=== PATIENT | female | born 1950 | race Caucasian/White ===

== ENCOUNTER 2016-07-29 12:34 | Emergency (ER) | payer OTHER, MEDICAID ==
[~2016-07-29] VITALS: Ht 160 cm; Wt 49.9 kg
[2016-07-29 13:44] LABS: Basophils # (auto) 0 uL; Basophils % (auto) 0.6 % (0.0-2.0); Eosinophils # (auto) 0.1 uL; Eosinophils % (auto) 1.8 % (0.0-7.0); Hematocrit 44.5 % (36.0-46.0); Hemoglobin 14.7 g/dL (12.2-16.2); Lymphocytes # (auto) 1.2 uL; Lymphocytes % (auto) 21.6 % (10.0-50.0); Mean Corpuscular Hemoglobin 28.5 pg (28.0-32.0); Mean Corpuscular Volume 86.6 fL (80.0-100.0); Mean Platelet Volume 8.1 fL (7.4-10.4); Monocytes # (auto) 0.4 uL; Monocytes % (auto) 6.6 % (0.0-12.0); Neutrophils # (auto) 3.8 uL; Neutrophils % (auto) 69.4 % (37.0-80.0); Platelet Count (auto) 272 10^3/uL (140-450); Red Cell Distribution Width 12.5 % (11.6-16.0); White Blood Cell 5.5 10^3/uL (4.4-10.8)
[2016-07-29 13:49] LABS: Salicylate < 1.7 mg/dL (2.8-20.0)
[2016-07-29 13:51] LABS: Albumin 3.9 g/dL (3.4-5.0); Alkaline Phosphatase 116 U/L (45-117); Anion Gap 7 (5-15); Aspartate Aminotransferase 18 U/L (15-37); BUN/Creatinine Ratio 23.2; Bilirubin, Total 1.4 mg/dL (0.2-1.0); Blood Urea Nitrogen 16 mg/dL (7-18); Calcium 9.6 mg/dL (8.5-10.1); Carbon Dioxide 24 mmol/L (21-32); Chloride 111 mmol/L (98-107); GFR African American 111 mL/min; GFR Non-African American 91 mL/min; Glucose 108 mg/dL (74-106); Potassium 4.1 mmol/L (3.5-5.1); Sodium 142 mmol/L (136-145); Total Protein 7.7 g/dL (6.4-8.2)
[2016-07-29 13:56] LABS: Acetaminophen < 2.0 ug/mL (10-30)
[2016-07-29 17:23] VITALS: BP 136/80
== END 2016-07-29 17:38 | disposition home or self-care (01) ==
LOC: ER 12:34
DX: T48.6X1A Poisoning by antiasthmatics, accidental (unintentional), initial encounter (principal); F31.9 Bipolar disorder, unspecified; E07.9 Disorder of thyroid, unspecified; Y93.89 Activity, other specified; Y99.8 Other external cause status; Y92.89 Other specified places as the place of occurrence of the external cause
CPT/HCPCS: 36415; 80053; 80320; 80329; 85025

== ENCOUNTER 2018-10-29 17:05 | Emergency (ER) | payer OTHER, MEDICAID ==
[~2018-10-29] VITALS: Ht 157.5 cm; Wt 61.2 kg
[2018-10-29 18:11] LABS: Basophils # (auto) 0.1 uL; Basophils % (auto) 1.3 % (0.0-2.0); Eosinophils # (auto) 0.2 uL; Eosinophils % (auto) 4.1 % (0.0-7.0); Hematocrit 41.5 % (36.0-46.0); Hemoglobin 13.8 g/dL (12.2-16.2); Lymphocytes # (auto) 1.1 uL; Lymphocytes % (auto) 17.8 % (10.0-50.0); Mean Corpuscular Hemoglobin 28.7 pg (28.0-32.0); Mean Corpuscular Hgb Conc. 33.3 g/dL (32.0-36.0); Mean Corpuscular Volume 86.3 fL (80.0-100.0); Monocytes # (auto) 0.4 uL; Neutrophils # (auto) 4.1 uL; Neutrophils % (auto) 69.8 % (37.0-80.0); Nucleated Red Blood Cells % 0.1 %; Platelet Count (auto) 198 10^3/uL (140-450); Red Blood Cells 4.81 10^6/uL (4.0-5.20); Red Cell Distribution Width 12.9 % (11.8-14.3); White Blood Cell 5.9 10^3/uL (4.4-10.8)
[2018-10-29 18:40] LABS: Alanine Aminotransferase 31 U/L (13-56); Albumin 3.3 g/dL (3.4-5.0); Anion Gap 10 (5-15); Aspartate Aminotransferase 24 U/L (15-37); Blood Urea Nitrogen 21 mg/dL (7-18); Carbon Dioxide 25 mmol/L (21-32); Chloride 110 mmol/L (98-107); GFR African American 88 mL/min; GFR Non-African American 72 mL/min; Glucose 169 mg/dL (74-106); Magnesium 1.9 mg/dL (1.6-2.6); Potassium 3.7 mmol/L (3.5-5.1); Sodium 145 mmol/L (136-145)
[2018-10-29 18:45] LABS: Alkaline Phosphatase 127 U/L (45-117); Bilirubin, Total 0.4 mg/dL (0.2-1.0); Total Protein 6.5 g/dL (6.4-8.2)
[2018-10-29 20:19] LABS: Urine Bacteria FEW /hpf (None Seen); Urine Blood Negative /uL (Negative); Urine Mucus FEW (None Seen); Urine Specific Gravity 1.023 (1.001-1.035); Urine WBC 5 /hpf (0 - 5)
[2018-10-29 20:21] LABS: Alcohol, Urine < 3.0 mg/dL (0-5); Amphetamine Screen, Urine NEGATIVE (NEGATIVE); Barbiturate Scree,Urine NEGATIVE (NEGATIVE); Benzodiazephine Screen, Urine NEGATIVE (NEGATIVE); Cannabinoid Screen, Urine NEGATIVE (NEGATIVE); Cocaine Screen, Urine NEGATIVE (NEGATIVE); Opiate Scree,Urine NEGATIVE (NEGATIVE); Phencyclidine Screen, Urine NEGATIVE (NEGATIVE)
[2018-10-29] MEDS ORDERED: cefTRIAXone 1GM/50ML D5W 50 ML IV ONE (21:15)
[2018-10-29 21:45] LABS: INR 0.95 (0.9-1.15); Partial Thromboplastin Time 23.7 sec (23.64-32.05)
[2018-10-29] MEDS ORDERED: IOHEXOL 350 MG/ML 100ML IJ ONE (22:40)
[2018-10-30 03:00] VITALS: BP 111/63
== END 2018-10-30 04:57 | disposition home or self-care (01) ==
LOC: EDBD 17:05 → ER 17:05
DX: R06.02 Shortness of breath (principal); N39.0 Urinary tract infection, site not specified; R79.89 Other specified abnormal findings of blood chemistry; F17.210 Nicotine dependence, cigarettes, uncomplicated
CPT/HCPCS: 36415; 71045; 71260; 80053; 80307; 81001; 83735; 83880; 84484; 85025; 85379; 85610; 85730; 93005; 94761; 96365; 99284; J0696; Q9967

== ENCOUNTER 2019-01-29 09:15 | Emergency (ER) | payer OTHER, MEDICAID ==
[~2019-01-29] VITALS: Ht 157.5 cm; Wt 62.1 kg
[2019-01-29 09:58] VITALS: BP 140/74
[2019-01-29] MEDS ORDERED: IBUPROFEN 600 MG TAB PO ONE (10:15)
== END 2019-01-29 11:51 | disposition home or self-care (01) ==
LOC: ER 09:21
DX: M25.551 Pain in right hip (principal); M79.604 Pain in right leg; F17.210 Nicotine dependence, cigarettes, uncomplicated; E78.5 Hyperlipidemia, unspecified; W19.XXXA Unspecified fall, initial encounter; Y93.89 Activity, other specified; Y99.8 Other external cause status; Y92.89 Other specified places as the place of occurrence of the external cause
CPT/HCPCS: 73502

== ENCOUNTER 2021-02-17 13:36 | Emergency (ER) | payer OTHER, MEDICAID ==
[~2021-02-17] VITALS: Ht 167.6 cm; Wt 63.5 kg
[2021-02-17 15:34] LABS: Basophils # (auto) 0.1 10 ^3/uL (0-0.2); Basophils % (auto) 0.7 % (0.0-2.0); Eosinophils # (auto) 0.1 10 ^3/uL (0-0.8); Hematocrit 44.3 % (36.0-46.0); Hemoglobin 14.4 g/dL (12.2-16.2); Lymphocytes # (auto) 0.6 10 ^3/uL (0.4-5.4); Lymphocytes % (auto) 4.5 % (10.0-50.0); Mean Corpuscular Hgb Conc. 32.5 g/dL (32.0-36.0); Monocytes # (auto) 1.1 10 ^3/uL (0-1.3); Monocytes % (auto) 8.4 % (0.0-12.0); Neutrophils # (auto) 11.4 10 ^3/uL (1.6-8.6); Neutrophils % (auto) 85.4 % (37.0-80.0); Red Blood Cells 5.15 10^6/uL (4.0-5.20); Red Cell Distribution Width 12.9 % (11.8-14.3); White Blood Cell 13.3 10^3/uL (4.4-10.8)
[2021-02-17 15:49] LABS: Albumin 3.3 g/dL (3.4-5.0); Calcium 9.2 mg/dL (8.5-10.1); Potassium 3.9 mmol/L (3.5-5.1)
[2021-02-17 15:54] LABS: BUN/Creatinine Ratio 19.5; Bilirubin, Total 0.7 mg/dL (0.2-1.0); Total Protein 7.1 g/dL (6.4-8.2)
[2021-02-17] MEDS ORDERED: IPRATROPIUM BROM 0.5 MG/2.5ML INH SOL NEB ONE ×2 (16:15→17:45)
[2021-02-17] MEDS ORDERED: methylPREDNISolone SOD SUCC 125 MG/2 ML VL IV ONE (16:15)
[2021-02-17] MEDS ORDERED: ALBUTEROL SULF 2.5 MG/0.5ML(0.5%) NEB SOLN NEB ONE ×2 (16:15→17:45)
[2021-02-17 18:00] VITALS: BP 120/90
== END 2021-02-17 18:21 | disposition admitted as inpatient to this hospital (09) ==
LOC: EDUNIT# 13:36 → EDBD 13:36 → ER 13:36
DX: J44.1 Chronic obstructive pulmonary disease with (acute) exacerbation (principal); E46 Unspecified protein-calorie malnutrition; E78.5 Hyperlipidemia, unspecified; F17.210 Nicotine dependence, cigarettes, uncomplicated; Z68.22 Body mass index [BMI] 22.0-22.9, adult; Z20.822 Contact with and (suspected) exposure to COVID-19
CPT/HCPCS: 36415; 71045; 80053; 83735; 84484; 85025; 87426; 93005; 94640; 96374; 99285; J2930; J7644

== ENCOUNTER 2022-11-10 10:38 | Emergency (ER) | payer OTHER, MEDICAID ==
[~2022-11-10] VITALS: Ht 157.5 cm; Wt 60.4 kg
[2022-11-10] MEDS ORDERED: ACETAMINOPHEN 325 MG TAB PO ONE (11:00)
[2022-11-10 11:58] VITALS: BP 106/64; PULSE 80; RESP 20; O2SAT 94
[2022-11-10 12:06] VITALS: TEMP 97.6
[2022-11-10 12:36] LABS: Urine Bacteria FEW /hpf (None Seen); Urine Blood TRACE /uL (Negative); Urine Clarity HAZY (Clear); Urine Color Yellow (Yellow); Urine Mucus FEW (None Seen); Urine Protein, UAD Negative (Negative); Urine Specific Gravity 1.026 (1.001-1.035); Urine Urobilinogen Normal (Negative); Urine WBC 4 /hpf (0 - 5); Urine pH 5.5 (5.0-8.0)
[2022-11-10] MEDS ORDERED: CIPR-173 PO (13:03)
[2022-11-10] MEDS ORDERED: ACET-1080 PO (13:03)
== END 2022-11-10 13:15 | disposition home or self-care (01) ==
LOC: ER 10:38
DX: S39.012A Strain of muscle, fascia and tendon of lower back, initial encounter (principal); N30.00 Acute cystitis without hematuria; F41.9 Anxiety disorder, unspecified; J45.909 Unspecified asthma, uncomplicated; F32.9 Major depressive disorder, single episode, unspecified; E78.5 Hyperlipidemia, unspecified; F17.210 Nicotine dependence, cigarettes, uncomplicated; Z88.8 Allergy status to other drugs, medicaments and biological substances; Z79.1 Long term (current) use of non-steroidal anti-inflammatories (NSAID); Z79.899 Other long term (current) drug therapy; X58.XXXA Exposure to other specified factors, initial encounter; Y93.89 Activity, other specified; Y92.89 Other specified places as the place of occurrence of the external cause; Y99.8 Other external cause status
CPT/HCPCS: 72100; 81001

== ENCOUNTER 2024-05-10 11:00 | Emergency (ER) | payer OTHER, MEDICAID ==
[~2024-05-10] VITALS: Ht 157.5 cm; Wt 54.9 kg
[~2024-05-10 11:00] MED LIST: ACET-1080 PO; CIPR-173 PO
[2024-05-10 12:19] VITALS: PULSE 75; RESP 17; TEMP 97.6; O2SAT 98
--- NOTE | 2024-05-10 13:30 | ED.PDOC ---
History of Present Illness HPI Comments 73-year-old female presents with a chief complaint of body pain x 2 days onset. Patient states that her neck, back, and head have been hurting her recently. Patients senior drafter mentions that patient typically sits in a chair all day in front of her computer and does not move around much. Patient relays that she feels like her muscles and body ache all over. No other symptoms or modifying factors present at this time. Chief Complaint: Body Pain Time Seen by MD: 13:12 Primary Care Provider: WILLIAM Rainey Notes: Medications, Allergies Allergies: Coded Allergies: Ondansetron (Verified Allergy, Unknown, 02/17/21) Tetracycline (Verified Allergy, Unknown, 02/17/21) Home Meds Active Scripts Ciprofloxacin Hcl (Cipro) 500 Mg Tab, 1 TAB PO BID, #14 TAB Prov:NAHUM CHAND 11/10/22 Acetaminophen (Tylenol 8 Hour Arthritis) 650 Mg Tab, 650 MG PO TID, #30 TAB Prov:NAHUM CHAND 11/10/22 Information Source: Patient, Friend Mode of Arrival: Ambulatory Severity: Moderate Timing: Days Duration: Since onset Prehospital treatment: None Past Medical History PAST MEDICAL HISTORY: Anxiety, Asthma, Depression, High Lipids Surgical History: Denies all surgeries [employer] History: No Pertinent [employer] History Family History Family History: Reviewed,noncontributory to illness Social History Smoker: Cigarettes, Less Than 1 Pack/Day Alcohol: Denies ETOH Use Drugs: Denies Drug Use Lives In: Home Constitutional: denies: chills, diaphoresis, fatigue, fever, malaise, sweats, weakness, others EENTM: denies: blurred vision, double vision, ear bleeding, ear discharge, ear drainage, ear pain, ear ringing, eye pain, eye redness, hearing loss, mouth pain, mouth swelling, nasal discharge, nose bleeding, nose congestion, nose pain, photophobia, tearing, throat pain, throat swelling, voice changes, others Respiratory: denies: cough, hemoptysis, orthopnea, SOB at rest, shortness of breath, SOB with excertion, stridor, wheezing, others Cardiovascular: denies: chest pain, dizzy spells, diaphoresis, Dyspnea on exertion, edema, irregular heart beat, left arm pain, lightheadedness, palpitations, PND, syncope, others Gastrointestinal: denies: abdomen distended, abdominal pain, blood streaked bowels, constipated, diarrhea, dysphagia, difficulty swallowing, hematemesis, melena, nausea, poor appetite, poor fluid intake, rectal bleeding, rectal pain, vomiting, others Genitourinary: denies: abnormal vagina bleeding, burning, dyspareunia, dysuria, flank pain, frequency, hematuria, incontinence, pain, , vagina discharge, urgency, others Neurological: denies: dizziness, fainting, headache, left sided numbness, left sided weakness, numbness, paresthesia, pre-existing deficit, right sided numbness, right sided weakness, seizure, speech problems, tingling, tremors, weakness, others Musculoskeletal: reports: back pain, muscle pain, neck pain; denies: gout, joint pain, joint swelling, muscle stiffness, others Integumetry: denies: bruises, change in color, change in hair/nails, dryness, laceration, lesions, lumps, rash, wounds, others Allergic/Immunocompromised: denies: Difficulty Healing, Frequent Infections, Hives, Itching, others Hematologic/Lymphatic: denies: anemia, blood clots, easy bleeding, easy bruising, swollen glands, others Endocrine: denies: excessive hunger, excessive sweating, excessive thirst, excessive urination, flushing, intolerance to cold, intolerance to heat, unexplained weight gain, unexplained weight loss, others Psychiatric: denies: anxiety, bipolar disorder, depression, hopeless, panic disorder, schizophrenia, sleepless, suicidal, others All Other Systems: Reviewed and Negative Physical Exam General Appearance: Mild Distress, Normal HEENT: NOT DONE Neck: NOT DONE Respiratory: Chest Non-Tender, Lungs Clear, No Respiratory Distress, Normal Breath Sounds Cardiovascular: No Murmur, No Gallop, Regular Rate/Rhythm Breast Exam: Deferred Gastrointestinal: Non Tender, Soft Genitalia: Deferred Pelvic: Deferred Rectal: Deferred Extremities: Normal inspection, No pedal edema Neurologic: Alert, Normal Affect, Normal Mood Cerebellar Function: NOT DONE Reflexes: NOT DONE Skin: Dry, Normal Color Lymphatic: NOT DONE Was a procedure done? Was a procedure done?: No Differential Dx Considerations may include: Spasm muscle, stroke, sepsis, meningitis encephalitis X-Ray, Labs, Meds, VS Vital Signs Date Time Temp Pulse Resp B/P (MAP) Pulse Ox O2 Delivery O2 Flow Rate FiO2 05/10/24 14:16 77 18 151/85 (107) 94 05/10/24 12:19 97.6 75 18 147/70 (95) 98 97.6 05/10/24 12:19 75 18 98 Room Air 05/10/24 12:19 75 17 98 Room Air* 0 21 05/10/24 11:14 98.8 76 16 141/76 (97) 94 X-Ray, Labs, Meds, VS Comment This 73-year-old female presents secondary to migratory muscle pain over the last several days. She was spends most retained for [employer]. She states the pain occurs after prolonged sitting. It does not seem the same location. Today, she was right lateral neck pain that radiates into her cranial bandlike headache. She denies any other signs or symptoms. Denies any other palliative provocative factor. Denies modifying factors. Physical exam benign except for having a spasms of the right sternocleidomastoid muscle palpation muscle recreates her pain. Considering her history and physical exam, believe she was having a muscle spasm secondary prolonged sitting. She was asked to consider gentle stretching, not sitting for prolonged periods of time, sooner hydrated. Unfortunately, the patient eloped prior to being fully worked up. Time of 1ST Reevaluation: 13:42 Reevaluation 1ST: Unchanged Patient Education/Counseling: Diagnosis, Treatment, Prognosis Family Education/Counseling: Diagnosis, Treatment, Prognosis Departure 1 Departure Time of Disposition: 14:27 Impression: Primary Impression: Spasm of muscle Additional Impression: Tension headache Disposition: 07 LEFT AWOL/ELOPED Condition: Good Discharged With: Piano Mover Critical Care Note Critical Care Time?: No Stability Stability form required: No I personally scribed for SILVESTRE HUSAIN MD ([email or web address]) on 05/10/24 at 13:30. Electronically submitted by Matthias Bains ([email or web address]). SILVESTRE HUSAIN MD May 10, 2024 13:30
[2024-05-10 14:16] VITALS: BP 151/85; PULSE 77; RESP 18; O2SAT 94
== END 2024-05-10 16:22 | disposition left against medical advice (07) ==
LOC: ER 11:00
DX: G44.209 Tension-type headache, unspecified, not intractable (principal); M62.838 Other muscle spasm; J45.909 Unspecified asthma, uncomplicated; E78.5 Hyperlipidemia, unspecified; F17.210 Nicotine dependence, cigarettes, uncomplicated; Z88.1 Allergy status to other antibiotic agents; Z88.8 Allergy status to other drugs, medicaments and biological substances; Z79.2 Long term (current) use of antibiotics; Z79.1 Long term (current) use of non-steroidal anti-inflammatories (NSAID)